=== PATIENT | female | born 1950 | race Caucasian/White ===

== ENCOUNTER 2021-07-07 03:37 | Emergency (ER) | payer MEDICARE, MEDICAID ==
[~2021-07-07] VITALS: Ht 175.2 cm; Wt 100.0 kg
[2021-07-07 04:50] LABS: BASOPHILS % (AUTO) 1 % (0-10); EOSINOPHILS # (AUTO) 0.1 10^3/uL (0.0-0.3); EOSINOPHILS % (AUTO) 1 % (0-10); HEMATOCRIT 43 % (35-52); HEMOGLOBIN 13.5 g/dL (11.5-16.0); LYMPHOCYTES # (AUTO) 2.3 10^3/uL (1.0-4.0); LYMPHOCYTES % (AUTO) 36 % (12-44); MEAN CORPUSCULAR HEMOGLOBIN 30 pg (25-34); MEAN CORPUSCULAR HGB CONC 32 g/dL (32-36); MEAN CORPUSCULAR VOLUME 95 fL (80-99); MEAN PLATELET VOLUME 8.8 fL (9.0-12.2); MONOCYTES # (AUTO) 0.5 10^3/uL (0.0-1.0); MONOCYTES % (AUTO) 8 % (0-12); NEUTROPHILS # (AUTO) 3.4 10^3/uL (1.8-7.8); NEUTROPHILS % (AUTO) 54 % (42-75); PLATELET COUNT 321 10^3/uL (130-400); WHITE BLOOD COUNT 6.3 10^3/uL (4.3-11.0)
[2021-07-07 04:51] LABS: ALBUMIN 3.7 GM/DL (3.2-4.5)
[2021-07-07 04:52] LABS: POTASSIUM 3.7 MMOL/L (3.6-5.0)
[2021-07-07 04:53] LABS: CALCIUM 9.1 MG/DL (8.5-10.1)
[2021-07-07 04:56] LABS: BILIRUBIN,TOTAL 0.3 MG/DL (0.1-1.0); PROTHROMBIN TIME PATIENT 13.3 SEC (12.2-14.7)
[2021-07-07 04:57] LABS: CREATININE SERUM 1.15 MG/DL (0.60-1.30)
[2021-07-07] MEDS ORDERED: fentaNYL INJ 100 MCG/2 ML AMP IVP STA (05:31)
[2021-07-07] MEDS ORDERED: ONDANSETRON 4 MG/2 ML (SDV) Z0FRAN IVP ONE (05:45)
[2021-07-07] MEDS ORDERED: LACTATED RINGERS 1,000 ML IV STA (05:57)
--- NOTE | 2021-07-07 06:04 | ED Abdominal Pain ---
General Chief Complaint: Abdominal/GI Problems Stated Complaint: ABD PAIN Nursing Triage Note: Pt arrival to ER via [facility] from local [facility] with complaint of Abdominal Pain, Near Syncope, Vomiting. EMS states that patient was found outside of bathroom sitting in chair very pale, cool, diaphoretic and vomiting into trash can. Pt states that this happens about every 6 months. Pt states that she has had a couple alcoholic drinks tonight. EMS started IV and gave 300 ml of NS and 4 mg of zofran SECTION CUTTER. Pt arrival vomiting into emesis bag. Pt rates pain at a 2/10 at this time. Pt denies other complaints. Source of Information: Patient, EMS, Family Exam Limitations: No Limitations (CURTIS RIVAS MD) History of Present Illness Date Seen by Provider: Jul 07, 2021 Time Seen by Provider: 03:44 Initial Comments Here by EMS from the [facility] where she apparently had gone to the bathroom and then had severe abdominal pain and became pale, cool, diaphoretic and vomited. Had a near syncopal episode. EMS was summoned. They found her in the conditions stated. They initiated IV and transported here. Patient denies chest pain. She states that she had a similar episode several months ago and was told that she had gallstones and that she may have to have her gallbladder out if things got worse. She has not had pain since. She does admit to drinking a little bit tonight but does not usually drink daily. Denies fever chills. She is not vaccinated for Covid. Timing/Duration: 1/2 Hour Severity/Quality: Moderate, Aching Location: Generalized Abdomen Radiation: No Radiation Activities at Onset: None Modifying Factors: Improves With Resting, Improves With Vomiting Associated Symptoms: No Back Pain, No Chest Pain; Diaphoresis, Nausea/Vomiting; No Shortness of Air; Syncope, Weakness (CURTIS RIVAS MD) Allergies and Home Medications Allergies Coded Allergies: No Known Drug Allergies (Unverified , 07/07/21) Patient Home Medication List Home Medication List Reviewed: Yes (CURTIS RIVAS MD) Review of Systems Review of Systems Constitutional: see HPI; No chills, No fever EENTM: No Nose Congestion, No Throat Pain Respiratory: Denies Cough, Denies Shortness of Air Cardiovascular: Denies Chest Pain, Denies Edema Gastrointestinal: Abdominal Pain; Denies Diarrhea; Nausea, Vomiting Genitourinary: No Symptoms Reported Musculoskeletal: no symptoms reported Skin: No change in color, No lesions Psychiatric/Neurological: No Symptoms Reported Endocrine: No Symptoms Reported (CURTIS RIVAS MD) All Other Systems Reviewed Negative Unless Noted: Yes (CURTIS RIVAS MD) Past Nywqkdr-Jzzljr-Ihbwyf Hx Patient Social History Tobacco Use?: No Use of E-Cig and/or Vaping dev: No Substance use?: No Alcohol Use?: Yes Alcohol type: Beer, Hard Liquor, Wine Alcohol Frequency: Several times a month Pt feels they are or have been: No (CURTIS RIVAS MD) Immunizations Up To Date Influenza Vaccine Up-to-Date: No; Not Current (CURTIS RIVAS MD) Past Medical History Surgeries: Yes Tonsillectomy Respiratory: No Cardiac: No Neurological: No Genitourinary: No Cancer: Yes Cervical Did You Recieve Any Treatments: Yes What Type of Treatment Did You: Surgical Intervention Psychosocial: No (CURTIS RIVAS MD) Family Medical History Reviewed Nursing Family Hx (CURTIS RIVAS MD) Physical Exam Vital Signs Vital Signs - First Documented 07/07/21 03:44 Temp 36.7 Pulse 76 Resp 16 B/P (MAP) 131/68 (89) Pulse Ox 95 O2 Delivery Room Air (MARAH PEÑA MD) Vital Signs Capillary Refill : Less Than 3 Seconds (CURTIS RIVAS MD) Height/Weight/BMI Height: '" Weight: lbs. oz. kg; 32.00 BMI Method: General Appearance: WD/WN, no apparent distress HEENT: PERRL/EOMI, pharynx normal Neck: full range of motion, supple Respiratory: lungs clear, normal breath sounds Cardiovascular: regular rate, rhythm, no murmur Gastrointestinal: non tender, soft Extremities: non-tender, normal inspection Back: normal inspection, no vertebral tenderness Neurologic/Psychiatric: alert, oriented x 3 Skin: normal color, warm/dry (CURTIS RIVAS MD) Progress/Results/Core Measures Results/Orders Lab Results Laboratory Tests Test 07/07/21 03:50 Range/Units White Blood Count 6.3 4.3-11.0 10^3/uL Red Blood Count 4.51 3.80-5.11 10^6/uL Hemoglobin 13.5 11.5-16.0 g/dL Hematocrit 43 35-52 % Mean Corpuscular Volume 95 80-99 fL Mean Corpuscular Hemoglobin 30 25-34 pg Mean Corpuscular Hemoglobin Concent 32 32-36 g/dL Red Cell Distribution Width 14.1 10.0-14.5 % Platelet Count 321 130-400 10^3/uL Mean Platelet Volume 8.8 L 9.0-12.2 fL Immature Granulocyte % (Auto) 1 % Neutrophils (%) (Auto) 54 42-75 % Lymphocytes (%) (Auto) 36 12-44 % Monocytes (%) (Auto) 8 0-12 % Eosinophils (%) (Auto) 1 0-10 % Basophils (%) (Auto) 1 0-10 % Neutrophils # (Auto) 3.4 1.8-7.8 10^3/uL Lymphocytes # (Auto) 2.3 1.0-4.0 10^3/uL Monocytes # (Auto) 0.5 0.0-1.0 10^3/uL Eosinophils # (Auto) 0.1 0.0-0.3 10^3/uL Basophils # (Auto) 0.0 0.0-0.1 10^3/uL Immature Granulocyte # (Auto) 0.0 0.0-0.1 10^3/uL Prothrombin Time 13.3 12.2-14.7 SEC INR Comment 1.0 0.8-1.4 Activated Partial Thromboplast Time 27 24-35 SEC Sodium Level 140 135-145 MMOL/L Potassium Level 3.7 3.6-5.0 MMOL/L Chloride Level 108 H 98-107 MMOL/L Carbon Dioxide Level 20 L 21-32 MMOL/L Anion Gap 12 5-14 MMOL/L Blood Urea Nitrogen 18 7-18 MG/DL Creatinine 1.15 0.60-1.30 MG/DL Estimat Glomerular Filtration Rate 47 BUN/Creatinine Ratio 16 Glucose Level 167 H 70-105 MG/DL Calcium Level 9.1 8.5-10.1 MG/DL Corrected Calcium 9.3 8.5-10.1 MG/DL Magnesium Level 2.0 1.6-2.4 MG/DL Total Bilirubin 0.3 0.1-1.0 MG/DL Aspartate Amino Transf (AST/SGOT) 19 5-34 U/L Alanine Aminotransferase (ALT/SGPT) 17 0-55 U/L Alkaline Phosphatase 102 40-136 U/L Myoglobin 79.9 10.0-92.0 NG/ML Troponin I < 0.028 <0.028 NG/ML Total Protein 7.0 6.4-8.2 GM/DL Albumin 3.7 3.2-4.5 GM/DL Lipase 9 8-78 U/L (MARAH PEÑA MD) My Orders (MARAH PEÑA MD) Medications Given in ED Current Medications Medications Dose Ordered Sig/Lorena Route Start Time Stop Time Status Last Admin Dose Admin Ondansetron HCl 4 mg ONCE ONCE IVP 07/07/21 05:45 07/07/21 05:46 DC 07/07/21 05:41 4 MG Ondansetron HCl 4 mg STK-MED ONCE .ROUTE 07/07/21 06:14 07/07/21 06:17 DC 07/07/21 06:17 4 MG (MARAH PEÑA MD) Vital Signs/I&O 07/07/21 07/07/21 03:44 08:09 Temp 36.7 Pulse 76 67 Resp 16 16 B/P (MAP) 131/68 (89) 137/78 Pulse Ox 95 97 O2 Delivery Room Air Room Air (MARAH PEÑA MD) Blood Pressure Mean: 89 Progress Progress Note : Progress Note Seen and evaluated. Chest pain work-up initiated due to diaphoresis, hypotension and near syncope. EMS 1 L normal saline bolus continued. 0545: Cardiac work-up negative. Patient reports history and issues with gallstones. Chest x-ray shows pulmonary nodules. We will go ahead and get CT of the chest without contrast and get CT abdomen pelvis with contrast to rule out intra- abdominal pathology. Fentanyl 50 mcg IV and Zofran 4 mg IV given. We will repeat normal saline 1 L bolus. Patient's blood pressures have been normal range throughout the stay. 0605: Care transferred to Dr. Killian pending CT results. (CURTIS RIVAS MD) Progress Note : Time: 07:28 Progress Note Patient reevaluated, vital signs are stable. Patient currently rates her discomfort and nausea at about a "5". Abdomen is soft with hypoactive bowel sounds. No reproducible tenderness until I get right over the bladder. Patient states that she cannot provide a urine specimen at this time. Pending CT abdomen and pelvis read. Patient is stating that she would like some ice chips or water. Advised that we will wait until we get the CT abdomen and pelvis result back first. 0757 Patient has been up and to the bathroom; feeling better. drank a cup of water. Tells me that she has had one episode a year like this for at least the last 5 years. Currently does not have a PCP. has not had a workup for these episodes. Patient is telling her daughter that she passed out - although initially she felt near syncopal in her original history. She denies palpitations, chest pain or headache. I strongly encouraged her to find a PCP for further workup in her hometown of [place], [place] or [facility]. Patient's VS remain stable. SHe is alert, oriented and in no acute distress with symptoms continuing to improve. Will be sent home with return precautions. (MARAH PEÑA MD) Initial ECG Impression Date: Jul 07, 2021 Initial ECG Impression Time: 03:51 Initial ECG Rate: 78 Initial ECG Rhythm: Normal Sinus Comment Sinus rhythm with normal axis. No evidence of ST elevation NE. Low voltage precordial leads. No previous available for comparison. Interpreted by me. (CURTIS RIVAS MD) Diagnostic Imaging Diagonstic Imaging: Xray Plain Films/CT/US/NM/MRI: chest Comments Pulmonary nodules noted in the right lower lung area. No obvious pneumonia or pneumothorax. Reviewed: Reviewed by Me (CURTIS RIVAS MD) Diagonstic Imaging: CT Plain Films/CT/US/NM/MRI: chest, abdomen Comments CT chest noncontrast per stat rad 1. Densely calcified pulmonary nodules in the right middle lobe are likely granulomatous and require no further work-up 2. Moderate left axillary lymphadenopathy for which further evaluation is recommended to exclude malignancy NAME: KARRIE [facility] REC#: [id number] PT STATUS: REG ER : 1950 PHYSICIAN: CURTIS RIVAS MD ADMIT DATE: 07/07/21/ER Draft Date of Exam:07/07/21 CT ABDOMEN/PELVIS W PROCEDURE: CT abdomen and pelvis with contrast. TECHNIQUE: Multiple contiguous axial images were obtained through the abdomen and pelvis after administration of intravenous contrast. Auto Exposure Controls were utilized during the CT exam to meet ALARA standards for radiation dose reduction. All CT scans use one or more of the following dose optimizing techniques: automated exposure control, MA and/or KvP adjustment based on patient size and exam type or iterative reconstruction. INDICATION: 71-year-old female, abdominal pain. CORRELATION STUDY: None. FINDINGS: LOWER THORAX: Dense granuloma on the right middle lobe. No basilar infiltrate. Heart size mildly enlarged. GE junction relatively unremarkable. LIVER: Rounded low-density foci left lobe may reflect small cyst. GALLBLADDER: Distended but otherwise unremarkable. No bile duct dilatation. SPLEEN: Unremarkable. PANCREAS: Unremarkable. ADRENAL GLANDS: Unremarkable. KIDNEYS: Normal configuration. No calcification or obstruction. ABDOMINAL AORTA: Unremarkable, nonaneurysmal. GASTROINTESTINAL TRACT: Stomach relatively collapsed. There is no small bowel obstruction. There is moderate stool within the colon. Appendix is not discretely localized, there is no evidence for acute appendicitis. No abdominal ascites and/or free air. URINARY BLADDER: Decompressed. REPRODUCTIVE: Uterus and adnexa unremarkable for the patient's age. OSSEOUS STRUCTURES: Some bony demineralization is present. Mildly advanced degenerative changes lumbar spine. OTHER: None. IMPRESSION: 1. Negative for acute abnormality of the abdomen or pelvis. Dictated on workstation # [id number] Dict: 07/07/21 0733 Trans: 07/07/21 0737 LATONIA [id number] Interpreted by: WALLY ARAUJO DO Electronically signed by: Reviewed: Reviewed Night [facility] Study (MARAH PEÑA MD) Departure Impression Primary Impression: Abdominal pain Qualified Codes: R10.84 - Generalized abdominal pain Additional Impression: Nausea and vomiting Qualified Codes: R11.2 - Nausea with vomiting, unspecified Disposition: HOME, SELF-CARE Condition: Stable Departure-Patient Inst. Decision time for Depature: 08:01 (MARAH PEÑA MD) Patient Instructions: Abdominal Pain, Adult ED, LOCAL PHYSICIAN LIST, Nausea and Vomiting, Adult (DC) Add. Discharge Instructions: Drink water to stay well hydrated. Please call and followup with a primary care provider this week. You may need to follow up with a director digital catalogue to make sure you are not having any heart rhythm problems. Come back to the Emergency Department if you have any return of symptoms, fever, vomiting, bloody stool or other emergent concerns. CURTIS RIVAS MD Jul 07, 2021 06:04 MARAH PEÑA MD Jul 07, 2021 07:29
[2021-07-07] MEDS ORDERED: ONDANSETRON 4 MG/2 ML (SDV) Z0FRAN ONE (06:14)
[2021-07-07] MEDS ORDERED: DICYCLOMINE 10 MG/ML (BENTYL) 2 ML AMP IM STA (07:29)
--- NOTE | 2021-07-07 07:36 | Diagnostic Imaging Report ---
INDICATION: Chest pain. TECHNIQUE: Single view chest 5:02 AM. CORRELATION STUDY: None FINDINGS: Heart size and mediastinum are mildly prominent with the vasculature overall within normal limits. The lungs are clear with no consolidating infiltrate. There is no significant effusion or pneumothorax. 2 densely calcified granulomas at the right lung base. IMPRESSION: 1. Negative for acute abnormality of the chest. Dictated by: Dictated on workstation # [id number]
--- NOTE | 2021-07-07 07:38 | Diagnostic Imaging Report ---
PROCEDURE: CT abdomen and pelvis with contrast. TECHNIQUE: Multiple contiguous axial images were obtained through the abdomen and pelvis after administration of intravenous contrast. Auto Exposure Controls were utilized during the CT exam to meet ALARA standards for radiation dose reduction. All CT scans use one or more of the following dose optimizing techniques: automated exposure control, MA and/or KvP adjustment based on patient size and exam type or iterative reconstruction. INDICATION: 71-year-old female, abdominal pain. CORRELATION STUDY: None. FINDINGS: LOWER THORAX: Dense granuloma on the right middle lobe. No basilar infiltrate. Heart size mildly enlarged. GE junction relatively unremarkable. LIVER: Rounded low-density foci left lobe may reflect small cyst. GALLBLADDER: Distended but otherwise unremarkable. No bile duct dilatation. SPLEEN: Unremarkable. PANCREAS: Unremarkable. ADRENAL GLANDS: Unremarkable. KIDNEYS: Normal configuration. No calcification or obstruction. ABDOMINAL AORTA: Unremarkable, nonaneurysmal. GASTROINTESTINAL TRACT: Stomach relatively collapsed. There is no small bowel obstruction. There is moderate stool within the colon. Appendix is not discretely localized, there is no evidence for acute appendicitis. No abdominal ascites and/or free air. URINARY BLADDER: Decompressed. REPRODUCTIVE: Uterus and adnexa unremarkable for the patient's age. OSSEOUS STRUCTURES: Some bony demineralization is present. Mildly advanced degenerative changes lumbar spine. OTHER: None. IMPRESSION: 1. Negative for acute abnormality of the abdomen or pelvis. Dictated by: Dictated on workstation # [id number]
--- NOTE | 2021-07-07 07:41 | Diagnostic Imaging Report ---
PROCEDURE: CT chest without contrast. TECHNIQUE: Multiple contiguous axial images were obtained through the chest without the use of intravenous contrast. Auto Exposure Controls were utilized during the CT exam to meet ALARA standards for radiation dose reduction. INDICATION: Pulmonary nodule. CORRELATION: Chest radiograph same day FINDINGS: There is asymmetric and abnormally enlarged left axillary lymph nodes. Largest lymph node 2 x 1.5 cm. Lymphadenopathy extends into the retropectoral region as well. Small areas of nodularity of both breasts. Small subcentimeter right axillary lymph nodes. No definitive pathologically enlarged mediastinal lymph nodes on noncontrast imaging. Heart size is enlarged. Thoracic aortic contour relatively unremarkable. GE junction unremarkable. The lung epstein are clear of infiltrate. Large densely calcified 17 mm granuloma in the anterolateral right middle lobe with additional smaller one of 7 mm slightly more superiorly. Gallbladder is distended. Slightly accentuated thoracic kyphosis and degenerative changes thoracic spine. IMPRESSION: 1. Pulmonary nodule at chest radiograph corresponds to densely calcified granulomas in the right middle lobe. 2. Cardiac enlargement without overt failure. 3. Abnormal, pathologically enlarged left axillary and retropectoral lymph nodes. Correlation if patient has potentially received Covid vaccine in the left upper extremity. However, these lymph nodes are fairly large even for post vaccination status. Possibility of underlying neoplasm is definitely in the differential. Dictated by: Dictated on workstation # [id number]
[2021-07-07 08:09] VITALS: BP 137/78
== END 2021-07-07 08:09 | disposition home or self-care (01) ==
LOC: ER 03:38
DX: R10.84 Generalized abdominal pain (principal); R11.2 Nausea with vomiting, unspecified
CPT/HCPCS: 36415; 71045; 71250; 74177; 80053; 83690; 83735; 83874; 84484; 85025; 85610; 85730; 93005; 93041